=== PATIENT | female | born 1980 | race Caucasian/White ===

== ENCOUNTER → 2017-01-09 | Outpatient (CLI) | payer OTHER ==
[2005-05-03 08:00] VITALS: PULSE 70; TEMP 97.8
[~2017-01-09] MED LIST: NORCO 325 MG-7.1 TAB PO; ZYRTEC 10MG10 MG PO
== END ==
LOC: MC.RAD 12:58
DX: N63 Unspecified lump in breast (principal)

== ENCOUNTER → 2017-01-16 | Outpatient (CLI) | payer OTHER ==
[2005-05-03 08:00] VITALS: PULSE 70; TEMP 97.8
== END ==
LOC: MC.RAD 09:55
DX: C50.911 Malignant neoplasm of unspecified site of right female breast (principal)

== ENCOUNTER → 2017-02-08 | Outpatient (CLI) | payer OTHER ==
[2005-05-03 08:00] VITALS: TEMP 97.8
== END ==
LOC: COL.RAD 12:23
DX: C50.911 Malignant neoplasm of unspecified site of right female breast (principal)
CPT/HCPCS: A9541

== ENCOUNTER 2017-02-09 07:18 | Day surgery (SDC) | payer OTHER ==
[~2017-02-09] VITALS: Ht 162.6 cm; Wt 56.5 kg
[2017-02-09 08:34] VITALS: BP 132/62; PULSE 58; TEMP 97.6
[2017-02-09] MEDS ORDERED: ZYRTEC 10MG10 MG PO (08:44)
[2017-02-09] MEDS ORDERED: NORCO 325 MG-7.1 TAB PO (14:22)
[2017-02-09 15:00] VITALS: BP 116/76; PULSE 80; TEMP 98.4
[2017-02-09 15:15] VITALS: BP 115/66; PULSE 61
[2017-02-09 15:30] VITALS: BP 97/51; PULSE 55
[2017-02-09 15:45] VITALS: BP 98/55; PULSE 100
[2017-02-09 16:15] VITALS: BP 101/59; PULSE 56
== END 2017-02-09 17:15 | disposition home or self-care (01) ==
LOC: SDCO 07:18
DX: C50.511 Malignant neoplasm of lower-outer quadrant of right female breast (principal); C77.3 Secondary and unspecified malignant neoplasm of axilla and upper limb lymph nodes; N60.81 Other benign mammary dysplasias of right breast; F17.210 Nicotine dependence, cigarettes, uncomplicated; Z82.3 Family history of stroke; Z82.49 Family history of ischemic heart disease and other diseases of the circulatory system; Z80.1 Family history of malignant neoplasm of trachea, bronchus and lung; Z80.8 Family history of malignant neoplasm of other organs or systems
CPT/HCPCS: C1788; J0690; J1644; J2250; J2270; J2405; J2704; J3010; J7120

== ENCOUNTER → 2018-01-15 | Outpatient (CLI) | payer OTHER | LOC: MC.RAD 13:50 | DX: Z08 Encounter for follow-up examination after completed treatment for malignant neoplasm (principal); Z85.3 Personal history of malignant neoplasm of breast; Z90.11 Acquired absence of right breast and nipple; Z92.3 Personal history of irradiation ==

== ENCOUNTER → 2018-07-18 | Outpatient (CLI) | payer BC | LOC: MC.RAD 13:51 | DX: Z12.31 Encounter for screening mammogram for malignant neoplasm of breast (principal); C50.411 Malignant neoplasm of upper-outer quadrant of right female breast ==

== ENCOUNTER → 2019-07-24 | Outpatient (CLI) | payer BC | LOC: MC.RAD 07-21 08:30 | DX: Z12.31 Encounter for screening mammogram for malignant neoplasm of breast (principal); C50.411 Malignant neoplasm of upper-outer quadrant of right female breast; Z90.11 Acquired absence of right breast and nipple ==

== ENCOUNTER → 2020-06-22 | Outpatient (CLI) | payer BC | LOC: MC.RAD 13:52 | DX: Z85.3 Personal history of malignant neoplasm of breast (principal); Z98.890 Other specified postprocedural states; Z92.3 Personal history of irradiation ==

== ENCOUNTER → 2021-06-24 | Outpatient (CLI) | payer BC | LOC: MC.RAD 13:31 | DX: Z12.31 Encounter for screening mammogram for malignant neoplasm of breast (principal); C50.411 Malignant neoplasm of upper-outer quadrant of right female breast; Z98.890 Other specified postprocedural states; Z92.3 Personal history of irradiation ==

== ENCOUNTER → 2023-06-27 | Outpatient (CLI) | payer BC | LOC: MC.RAD 07:49 | DX: Z12.31 Encounter for screening mammogram for malignant neoplasm of breast (principal); C50.411 Malignant neoplasm of upper-outer quadrant of right female breast ==